=== PATIENT | male | born 1980 | race Two or more races ===

== ENCOUNTER 2023-12-27 07:21 | Emergency (ER) | payer OTHER ==
[~2023-12-27] VITALS: Ht 182.9 cm; Wt 106.1 kg
[2023-12-27] MEDS ORDERED: XARELTO20 MG PO (08:03)
[2023-12-27] MEDS ORDERED: METOPROLOL SUCC25 MG PO (08:04)
[2023-12-27] MEDS ORDERED: AZITHROMYCIN 500 MG VIAL IV ONE ×2 (09:12→09:15)
[2023-12-27] MEDS ORDERED: LIDOCAINE HCL 1% 10ML VIAL ONE (09:13)
[2023-12-27] MEDS ORDERED: CEFTRIAXONE SODIUM 500 MG VIAL IM ONE (09:15)
[2023-12-27] MEDS ORDERED: DOXYCYCLINE HY100 M3 PO (09:21)
== END 2023-12-27 14:28 | disposition home or self-care (01) ==
LOC: ER 07:22
DX: N39.0 Urinary tract infection, site not specified (principal); I49.8 Other specified cardiac arrhythmias; A64 Unspecified sexually transmitted disease
CPT/HCPCS: 96365; 96372; 99282; J0456; J0696

== ENCOUNTER 2024-07-18 18:54 | Emergency (ER) | payer OTHER ==
[~2024-07-18] VITALS: Ht 182.9 cm; Wt 98.0 kg
[~2024-07-18 18:54] MED LIST: DOXYCYCLINE HY100 M3 PO; METOPROLOL SUCC25 MG PO; XARELTO20 MG PO
[2024-07-18 19:55] LABS: URINE APPEARANCE Clear; URINE BILIRRUBIN Negative (NEGATIVE); URINE BLOOD NHT; URINE COLOR Yellow; URINE GLUCOSE Negative (NEGATIVE); URINE KETONE Negative (NEGATIVE); URINE LEUKOCYTE Small; URINE NITRATE Negative; URINE PROTEIN Negative (NEGATIVE); URINE UROBILINOGEN 0.2 E.U./dl
[2024-07-18 19:58] LABS: URINE BACTERIA 26.9 uL (0.0-1933); URINE RBC 69.5 uL (0.0-20.8); URINE WBC 12.4 uL (0.0-23.2)
[2024-07-18 20:16] LABS: URINE EPITHELIAL CELLS 0.4 uL (0.0-38.8)
[2024-07-18] MEDS ORDERED: CEFTRIAXONE SODIUM 1,000 MG VIAL IM ONE (22:00)
== END 2024-07-18 22:11 | disposition home or self-care (01) ==
LOC: ER 18:57
PROVIDERS: General Practice
DX: R35.0 Frequency of micturition (principal); R31.9 Hematuria, unspecified